=== PATIENT | female | born 1990 | race Two or more races ===

== ENCOUNTER 2018-09-22 18:06 | Emergency (ER) | payer MEDICAID ==
[~2018-09-22] VITALS: Ht 149.9 cm; Wt 44.5 kg
[~2018-09-22 18:06] MED LIST: PREN-96 PO
[2018-09-22 18:16] VITALS: BP 125/82
[2018-09-22] MEDS ORDERED: ACETAMINOPHEN 500 MG TAB PO ONE (18:30)
== END 2018-09-22 19:44 | disposition left against medical advice (07) ==
LOC: ER 18:06 → EDBD 18:06 → ER 19:44
DX: R10.11 Right upper quadrant pain (principal); R10.31 Right lower quadrant pain; Z53.21 Procedure and treatment not carried out due to patient leaving prior to being seen by health care provider
CPT/HCPCS: 74176